=== PATIENT | male | born 1975 | race Caucasian/White ===

== ENCOUNTER 2024-12-16 13:58 | Emergency (ER) | payer BC ==
[2024-12-16] MEDS: LORazepam 2 MG/ML SDV IVPUSH ONE ×2 (14:35→15:26)
[2024-12-16] MEDS: Sodium Chloride 0.9% 1,000 ML IV SCH ×2 (14:37→15:49)
[2024-12-16] MEDS: Magnesium Sulfate 2 GM/50 mL 2 GM/50 ML BAG IV ONE (14:41)
[2024-12-16 14:53] LABS: BASOPHILS PERCENT AUTO 0.2 % (0.0-1.0); HEMATOCRIT 48.1 % (42.0-52.0); HEMOGLOBIN 16.8 gm/dl (14.0-18.0); IMMATURE GRAN ABSOLUTE AUTO 0.02 K/mm3 (0.00-0.05); IMMATURE GRAN PERCENT AUTO 0.4 % (0.0-0.4); LYMPHOCYTES ABSOLUTE AUTO 0.5 K/mm3 (1.0-4.8); LYMPHOCYTES PERCENT AUTO 9.4 % (24.0-44.0); MEAN CORPUSCULAR HEMOGLOBIN 32.4 pg (28.0-32.0); MEAN CORPUSCULAR HGB CONC 34.9 g/dl (32.0-36.0); MEAN CORPUSCULAR VOLUME 92.9 fl (83.0-99.0); MEAN PLATELET VOLUME 12.6 fl (9.4-12.4); MONOCYTES ABSOLUTE AUTO 0.8 K/mm3 (0.0-0.8); MONOCYTES PERCENT AUTO 15.9 % (0.0-8.0); NEUTROPHILS ABSOLUTE AUTO 3.6 K/mm3 (1.8-7.7); NEUTROPHILS PERCENT AUTO 74.1 % (41.0-71.0); PLATELET COUNT,PLT 62 K/mm3 (150-400); RED BLOOD CELL COUNT 5.18 M/mm3 (4.52-5.90); WHITE BLOOD CELL COUNT,WBC 4.91 K/mm3 (3.9-11.3)
[2024-12-16 15:17] LABS: A/G RATIO 0.8 (1-2); ALBUMIN 3.4 g/dl (3.4-5.0); BUN/CREATININE RATIO 7.3 (14-18); CALCIUM 8.9 mg/dL (8.5-10.1); EST CRCL DRUG DOSING (CG) 78.59 mL/min; MAGNESIUM 1.1 mg/dL (1.8-2.4)
[2024-12-16 15:19] LABS: PROTEIN TOTAL,TP 7.5 g/dl (6.4-8.2)
[2024-12-16 15:20] LABS: CREATININE 1.1 mg/dL (0.7-1.3)
[2024-12-16] MEDS: Metoprolol Tartrate 5 MG/5 ML SDV IVPUSH ONE (15:29)
[2024-12-16 15:30] LABS: SLIDE REVIEW ABNORMAL SMEAR
[2024-12-16] MEDS: Sodium Chloride 0.9% 10 ML Syringe FLUSH ONE (15:33)
[2024-12-16] MEDS: Iopamidol 755 Mg/ML 100 ML Bottle IVPUSH ONE (15:47)
[2024-12-16] MEDS: Sodium Chloride 0.9% 100 ML IV SCH (15:47)
[2024-12-16 17:04] LABS: BARBITURATE SCREEN,URINE NEGATIVE (CUTOFF=200); BENZODIAZEPINES SCREEN,URINE NEGATIVE (CUTOFF=150); BUPRENORPHINE SCREEN,URINE NEGATIVE (CUTOFF=10); METHADONE SCREEN, URINE NEGATIVE (CUT0FF=200); METHAMPHETAMINES SCREEN, URINE NEGATIVE (CUTOFF=500); OXYCODONE SCREEN,URINE NEGATIVE (CUT0FF=100); THC SCREEN,URINE 20 NG/ML NEGATIVE (CUTOFF=50)
[2024-12-16 17:29] LABS: AMPHETAMINES SCREEN, URINE NEGATIVE (CUTOFF=500)
== END 2024-12-16 18:40 | disposition home or self-care (01) ==
LOC: JD.ED 13:58
DX: R07.89 Other chest pain (principal); F10.939 Alcohol use, unspecified with withdrawal, unspecified; F41.9 Anxiety disorder, unspecified; E86.0 Dehydration; K76.0 Fatty (change of) liver, not elsewhere classified; R91.1 Solitary pulmonary nodule; Z79.899 Other long term (current) drug therapy; Y90.9 Presence of alcohol in blood, level not specified
CPT/HCPCS: 36415; 71045; 71275; 80053; 80306; 80307; 82550; 83690; 83735; 83880; 84484; 85025; 85379; 93005; 96361; 96365; 96375; 96376; 99285; J2060; J3475; J3490; J7030; Q9967; 93010; 99284

== ENCOUNTER 2024-12-30 17:20 | Inpatient (IN) | payer BC, OTHER ==
[2024-12-30 18:32] LABS: BASOPHILS ABSOLUTE AUTO 0.0 K/mm3 (0.0-0.2); BASOPHILS PERCENT AUTO 0.2 % (0.0-1.0); EOSINOPHILS ABSOLUTE AUTO 0.1 K/mm3 (0.0-0.4); EOSINOPHILS PERCENT AUTO 0.4 % (0.0-6.0); IMMATURE GRAN ABSOLUTE AUTO 0.21 K/mm3 (0.00-0.05); IMMATURE GRAN PERCENT AUTO 1.8 % (0.0-0.4); LYMPHOCYTES ABSOLUTE AUTO 0.3 K/mm3 (1.0-4.8); LYMPHOCYTES PERCENT AUTO 2.8 % (24.0-44.0); MEAN PLATELET VOLUME 10.6 fl (9.4-12.4); MONOCYTES ABSOLUTE AUTO 1.5 K/mm3 (0.0-0.8); MONOCYTES PERCENT AUTO 12.6 % (0.0-8.0); NEUTROPHILS ABSOLUTE AUTO 9.8 K/mm3 (1.8-7.7); NEUTROPHILS PERCENT AUTO 82.2 % (41.0-71.0); NRBC ABSOLUTE 0.00 (0.00-0.02); NRBC PERCENT 0.0 % (0.0-0.2); PLATELET COUNT,PLT 418 K/mm3 (150-400); RED BLOOD CELL COUNT 4.31 M/mm3 (4.52-5.90); WHITE BLOOD CELL COUNT,WBC 11.94 K/mm3 (3.9-11.3)
[2024-12-30 18:41] LABS: INR 1.41
[2024-12-30 19:03] LABS: CHLORIDE,CL 78 mEq/L (98-107); ESTIMATED GFR 92 mL/min (>60)
[2024-12-30 19:36] LABS: A/G RATIO 0.6 (1-2); BILIRUBIN TOTAL 35.4 mg/dL (0.2-1.0); BLOOD UREA NITROGEN,BUN 16 mg/dL (7-18); CARBON DIOXIDE,CO2 23 mEq/L (21-32); EST CRCL DRUG DOSING (CG) 86.45 mL/min
[2024-12-30 19:48] LABS: ETHANOL BLOOD MEDICAL 0.00 gm% (0.00)
[2024-12-30 19:51] LABS: CREATININE 1.0 mg/dL (0.7-1.3); GLUCOSE RANDOM 98 mg/dL (70-99); POTASSIUM,K 3.4 mEq/L (3.5-5.1)
[2024-12-30 19:52] LABS: ASPARTATE AMNIOTRANSFERASE,AST 153 U/L (15-37); CREATINE KINASE,CK 87 U/L (39-308); TROPONIN I HIGH SENSITIVITY 7 pg/mL (<=76)
[2024-12-30 19:53] LABS: ALANINE AMINOTRANSFERASE,ALT 101 U/L (16-63); BILIRUBIN DIRECT 28.70 mg/dl (0.0-0.2)
[2024-12-30 19:56] LABS: SODIUM,NA 112 mEq/L (136-145)
[2024-12-30 21:28] LABS: APPEARANCE,URINE SLT CLOUDY (Clear); GLUCOSE,URINE TRACE (Negative); OCCULT BLOOD,URINE TRACE-INTACT (Negative)
[2024-12-30 21:38] LABS: BUPRENORPHINE SCREEN,URINE NEGATIVE (CUTOFF=10); METHADONE SCREEN, URINE NEGATIVE (CUT0FF=200); METHAMPHETAMINES SCREEN, URINE NEGATIVE (CUTOFF=500); OXYCODONE SCREEN,URINE NEGATIVE (CUT0FF=100); THC SCREEN,URINE 20 NG/ML NEGATIVE (CUTOFF=50)
[2024-12-30 21:45] LABS: AMPHETAMINES SCREEN, URINE NEGATIVE (CUTOFF=500)
[2024-12-30 21:49] LABS: EPITHELIAL CELLS,URINE 0-5 /hpf (0-5)
[2024-12-31 00:32] LABS: BLOOD UREA NITROGEN,BUN 16.0 mg/dL (7-18); CARBON DIOXIDE,CO2 23.0 mEq/L (21-32); CHLORIDE,CL 83.0 mEq/L (98-107); EST CRCL DRUG DOSING (CG) 78.59 mL/min; ESTIMATED GFR 82.0 mL/min (>60)
[2024-12-31 00:45] LABS: POTASSIUM,K 3.3 mEq/L (3.5-5.1); SODIUM,NA 115.0 mEq/L (136-145)
[2024-12-31 00:46] LABS: CREATININE 1.1 mg/dL (0.7-1.3); GLUCOSE RANDOM 85.0 mg/dL (70-99)
[2024-12-31] MEDS: Potassium Chloride 20 MEQ Tab.ER PO ONE (08:21)
[2024-12-31 08:51] LABS: BASOPHILS ABSOLUTE AUTO 0.0 K/mm3 (0.0-0.2); BASOPHILS PERCENT AUTO 0.2 % (0.0-1.0); EOSINOPHILS ABSOLUTE AUTO 0.0 K/mm3 (0.0-0.4); EOSINOPHILS PERCENT AUTO 0.3 % (0.0-6.0); IMMATURE GRAN ABSOLUTE AUTO 0.19 K/mm3 (0.00-0.05); IMMATURE GRAN PERCENT AUTO 1.4 % (0.0-0.4); LYMPHOCYTES ABSOLUTE AUTO 0.3 K/mm3 (1.0-4.8); LYMPHOCYTES PERCENT AUTO 2.2 % (24.0-44.0); MEAN PLATELET VOLUME 10.3 fl (9.4-12.4); MONOCYTES ABSOLUTE AUTO 1.4 K/mm3 (0.0-0.8); MONOCYTES PERCENT AUTO 10.8 % (0.0-8.0); NEUTROPHILS ABSOLUTE AUTO 11.4 K/mm3 (1.8-7.7); NEUTROPHILS PERCENT AUTO 85.1 % (41.0-71.0); NRBC ABSOLUTE 0.00 (0.00-0.02); NRBC PERCENT 0.0 % (0.0-0.2); PLATELET COUNT,PLT 389 K/mm3 (150-400); RED BLOOD CELL COUNT 4.53 M/mm3 (4.52-5.90); WHITE BLOOD CELL COUNT,WBC 13.38 K/mm3 (3.9-11.3)
[2024-12-31 10:11] LABS: A/G RATIO 0.6 (1-2); BILIRUBIN TOTAL 36.9 mg/dL (0.2-1.0); BLOOD UREA NITROGEN,BUN 17 mg/dL (7-18); CARBON DIOXIDE,CO2 22 mEq/L (21-32); CHLORIDE,CL 81 mEq/L (98-107); EST CRCL DRUG DOSING (CG) 78.59 mL/min; ESTIMATED GFR 82 mL/min (>60)
[2024-12-31 10:15] LABS: SODIUM,NA 114 mEq/L (136-145)
[2024-12-31 10:16] LABS: ALANINE AMINOTRANSFERASE,ALT 103 U/L (16-63); ASPARTATE AMNIOTRANSFERASE,AST 152 U/L (15-37); CREATININE 1.1 mg/dL (0.7-1.3); GLUCOSE RANDOM 79 mg/dL (70-99); POTASSIUM,K 3.4 mEq/L (3.5-5.1)
[2024-12-31 13:33] LABS: A/G RATIO 0.6 (1-2); BILIRUBIN TOTAL 36.2 mg/dL (0.2-1.0); BLOOD UREA NITROGEN,BUN 17 mg/dL (7-18); CARBON DIOXIDE,CO2 22 mEq/L (21-32)
[2024-12-31 13:44] LABS: CHLORIDE,CL 81 mEq/L (98-107); EST CRCL DRUG DOSING (CG) 72.04 mL/min; ESTIMATED GFR 74 mL/min (>60)
[2024-12-31 13:50] LABS: GLUCOSE RANDOM 88 mg/dL (70-99); POTASSIUM,K 3.5 mEq/L (3.5-5.1); SODIUM,NA 114 mEq/L (136-145)
[2024-12-31 13:51] LABS: CREATININE 1.2 mg/dL (0.7-1.3)
[2024-12-31 13:52] LABS: ALANINE AMINOTRANSFERASE,ALT 103 U/L (16-63); ASPARTATE AMNIOTRANSFERASE,AST 150 U/L (15-37)
[2024-12-31 23:10] LABS: OSMOLALITY,URINE 491 mosm/kg (400-1100)
[2025-01-01 04:28] LABS: BASOPHILS ABSOLUTE AUTO 0.0 K/mm3 (0.0-0.2); BASOPHILS PERCENT AUTO 0.3 % (0.0-1.0); EOSINOPHILS ABSOLUTE AUTO 0.1 K/mm3 (0.0-0.4); EOSINOPHILS PERCENT AUTO 0.5 % (0.0-6.0); IMMATURE GRAN ABSOLUTE AUTO 0.14 K/mm3 (0.00-0.05); IMMATURE GRAN PERCENT AUTO 1.3 % (0.0-0.4); LYMPHOCYTES ABSOLUTE AUTO 0.2 K/mm3 (1.0-4.8); LYMPHOCYTES PERCENT AUTO 2.0 % (24.0-44.0); MEAN PLATELET VOLUME 9.9 fl (9.4-12.4); MONOCYTES ABSOLUTE AUTO 1.2 K/mm3 (0.0-0.8); MONOCYTES PERCENT AUTO 11.0 % (0.0-8.0); NEUTROPHILS ABSOLUTE AUTO 9.5 K/mm3 (1.8-7.7); NEUTROPHILS PERCENT AUTO 84.9 % (41.0-71.0); NRBC ABSOLUTE 0.00 (0.00-0.02); NRBC PERCENT 0.0 % (0.0-0.2); PLATELET COUNT,PLT 306 K/mm3 (150-400); WHITE BLOOD CELL COUNT,WBC 11.14 K/mm3 (3.9-11.3)
[2025-01-01 05:06] LABS: ALANINE AMINOTRANSFERASE,ALT 89.0 U/L (16-63); ASPARTATE AMNIOTRANSFERASE,AST 125.0 U/L (15-37); BILIRUBIN TOTAL 31.1 mg/dL (0.2-1.0); BLOOD UREA NITROGEN,BUN 20.0 mg/dL (7-18); CARBON DIOXIDE,CO2 21.0 mEq/L (21-32); CHLORIDE,CL 85.0 mEq/L (98-107); CREATININE 1.1 mg/dL (0.7-1.3); EST CRCL DRUG DOSING (CG) 78.59 mL/min; ESTIMATED GFR 82.0 mL/min (>60); GLUCOSE RANDOM 81.0 mg/dL (70-99); POTASSIUM,K 3.2 mEq/L (3.5-5.1)
[2025-01-01 05:09] LABS: RED BLOOD CELL COUNT 3.9 M/mm3 (4.52-5.90)
[2025-01-01 05:26] LABS: A/G RATIO 0.6 (1-2); PROTEIN TOTAL,TP 4.4 g/dl (6.4-8.2)
[2025-01-01 05:38] LABS: SODIUM,NA 116.0 mEq/L (136-145)
[2025-01-01] MEDS ORDERED: Acetaminophen/HYDROcodone 325-5 MG Tab PO PRN (09:18)
[2025-01-01] MEDS ORDERED: Ondansetron 4 MG/2 ML SDV IV PRN (09:18)
[2025-01-01] MEDS ORDERED: LORazepam 2 MG/ML SDV IVPUSH PRN ×2 (09:21→13:17)
[2025-01-01] MEDS: Potassium Chloride 20 MEQ Tab.ER PO ONE (09:28)
[2025-01-01] MEDS: Cyanocobalamin (Vitamin B12) 1,000 MCG Tab PO SCH (09:56)
[2025-01-01] MEDS: Furosemide 40 MG/4 ML VIAL IVPUSH ONE (09:56)
[2025-01-01 12:46] LABS: BLOOD UREA NITROGEN,BUN 21.0 mg/dL (7-18); CARBON DIOXIDE,CO2 22.0 mEq/L (21-32); CHLORIDE,CL 84.0 mEq/L (98-107); EST CRCL DRUG DOSING (CG) 66.5 mL/min; ESTIMATED GFR 67.0 mL/min (>60)
[2025-01-01 12:48] LABS: CREATININE 1.3 mg/dL (0.7-1.3); GLUCOSE RANDOM 90.0 mg/dL (70-99); POTASSIUM,K 3.8 mEq/L (3.5-5.1); SODIUM,NA 115.0 mEq/L (136-145); TSH 1.087 uIU/mL (0.358-3.74)
[2025-01-01 12:49] LABS: PHOSPHORUS 2.8 mg/dL (2.6-4.7)
[2025-01-01] MEDS: Potassium Phosphates 30 MMOLE in Sodium Chloride 0.9% 500 ML IV SCH (13:29)
[2025-01-01] MEDS: prednisoLONE Soln 15 MG/5 ML UD Cup PO SCH (14:09)
[2025-01-01 15:39] LABS: BLOOD UREA NITROGEN,BUN 22.0 mg/dL (7-18); CARBON DIOXIDE,CO2 20.0 mEq/L (21-32); CHLORIDE,CL 86.0 mEq/L (98-107); EST CRCL DRUG DOSING (CG) 66.5 mL/min; ESTIMATED GFR 67.0 mL/min (>60)
[2025-01-01 15:48] LABS: SODIUM,NA 117.0 mEq/L (136-145)
[2025-01-01 15:49] LABS: CREATININE 1.3 mg/dL (0.7-1.3); GLUCOSE RANDOM 95.0 mg/dL (70-99); POTASSIUM,K 3.5 mEq/L (3.5-5.1)
[2025-01-01 19:00] LABS: BLOOD UREA NITROGEN,BUN 21.0 mg/dL (7-18); CARBON DIOXIDE,CO2 18.0 mEq/L (21-32); CHLORIDE,CL 85.0 mEq/L (98-107); CREATININE 1.4 mg/dL (0.7-1.3); EST CRCL DRUG DOSING (CG) 61.75 mL/min; ESTIMATED GFR 62.0 mL/min (>60); GLUCOSE RANDOM 110.0 mg/dL (70-99); POTASSIUM,K 4.2 mEq/L (3.5-5.1)
[2025-01-01 19:08] LABS: SODIUM,NA 116.0 mEq/L (136-145)
[2025-01-01] MEDS ORDERED: Sennosides/Docusate Sodium 50-8.6 MG Tab PO PRN (21:00)
[2025-01-01 21:12] LABS: BLOOD UREA NITROGEN,BUN 22.0 mg/dL (7-18); CARBON DIOXIDE,CO2 21.0 mEq/L (21-32); CHLORIDE,CL 87.0 mEq/L (98-107); CREATININE 1.5 mg/dL (0.7-1.3); EST CRCL DRUG DOSING (CG) 57.63 mL/min; ESTIMATED GFR 57.0 mL/min (>60); GLUCOSE RANDOM 111.0 mg/dL (70-99); POTASSIUM,K 4.4 mEq/L (3.5-5.1)
[2025-01-01 21:35] LABS: SODIUM,NA 118.0 mEq/L (136-145)
[2025-01-02 00:31] LABS: BLOOD UREA NITROGEN,BUN 22.0 mg/dL (7-18); CARBON DIOXIDE,CO2 21.0 mEq/L (21-32); CHLORIDE,CL 86.0 mEq/L (98-107); EST CRCL DRUG DOSING (CG) 57.63 mL/min; ESTIMATED GFR 57.0 mL/min (>60)
[2025-01-02 00:46] LABS: GLUCOSE RANDOM 116.0 mg/dL (70-99); POTASSIUM,K 3.8 mEq/L (3.5-5.1); SODIUM,NA 117.0 mEq/L (136-145)
[2025-01-02 00:47] LABS: CREATININE 1.5 mg/dL (0.7-1.3)
[2025-01-02 03:02] LABS: BASOPHILS ABSOLUTE AUTO 0.0 K/mm3 (0.0-0.2); BASOPHILS PERCENT AUTO 0.1 % (0.0-1.0); EOSINOPHILS ABSOLUTE AUTO 0.0 K/mm3 (0.0-0.4); EOSINOPHILS PERCENT AUTO 0.1 % (0.0-6.0); IMMATURE GRAN ABSOLUTE AUTO 0.18 K/mm3 (0.00-0.05); IMMATURE GRAN PERCENT AUTO 1.5 % (0.0-0.4); LYMPHOCYTES ABSOLUTE AUTO 0.1 K/mm3 (1.0-4.8); LYMPHOCYTES PERCENT AUTO 1.2 % (24.0-44.0); MEAN PLATELET VOLUME 9.9 fl (9.4-12.4); MONOCYTES ABSOLUTE AUTO 0.9 K/mm3 (0.0-0.8); MONOCYTES PERCENT AUTO 7.4 % (0.0-8.0); NEUTROPHILS ABSOLUTE AUTO 10.7 K/mm3 (1.8-7.7); NEUTROPHILS PERCENT AUTO 89.7 % (41.0-71.0); NRBC ABSOLUTE 0.00 (0.00-0.02); NRBC PERCENT 0.0 % (0.0-0.2); PLATELET COUNT,PLT 330 K/mm3 (150-400); WHITE BLOOD CELL COUNT,WBC 11.93 K/mm3 (3.9-11.3)
[2025-01-02 03:19] LABS: INR 1.65
[2025-01-02 04:01] LABS: A/G RATIO 0.6 (1-2); BILIRUBIN TOTAL 33.7 mg/dL (0.2-1.0); BLOOD UREA NITROGEN,BUN 22.0 mg/dL (7-18); CARBON DIOXIDE,CO2 20.0 mEq/L (21-32); CHLORIDE,CL 87.0 mEq/L (98-107); EST CRCL DRUG DOSING (CG) 61.75 mL/min; ESTIMATED GFR 62.0 mL/min (>60)
[2025-01-02 04:06] LABS: RED BLOOD CELL COUNT 3.80 M/mm3 (4.52-5.90)
[2025-01-02 04:15] LABS: SODIUM,NA 118.0 mEq/L (136-145); VITAMIN D,25-HYDROXY 37.0 ng/ml (30.0-100.0)
[2025-01-02 04:16] LABS: POTASSIUM,K 3.7 mEq/L (3.5-5.1)
[2025-01-02 04:17] LABS: CREATININE 1.4 mg/dL (0.7-1.3); GLUCOSE RANDOM 112.0 mg/dL (70-99); PROTEIN TOTAL,TP 4.6 g/dl (6.4-8.2)
[2025-01-02 04:18] LABS: PHOSPHORUS 4.2 mg/dL (2.6-4.7)
[2025-01-02 04:20] LABS: ALANINE AMINOTRANSFERASE,ALT 93.0 U/L (16-63); ASPARTATE AMNIOTRANSFERASE,AST 124.0 U/L (15-37)
[2025-01-02 04:28] LABS: FOLIC ACID 4.8 ng/mL (8.6-58.9)
[2025-01-02 08:02] LABS: BLOOD UREA NITROGEN,BUN 23.0 mg/dL (7-18); CARBON DIOXIDE,CO2 19.0 mEq/L (21-32); CHLORIDE,CL 86.0 mEq/L (98-107); EST CRCL DRUG DOSING (CG) 57.63 mL/min; ESTIMATED GFR 57.0 mL/min (>60)
[2025-01-02 08:14] LABS: SODIUM,NA 118.0 mEq/L (136-145)
[2025-01-02 08:15] LABS: CREATININE 1.5 mg/dL (0.7-1.3); GLUCOSE RANDOM 100.0 mg/dL (70-99); POTASSIUM,K 3.6 mEq/L (3.5-5.1)
[2025-01-02 09:46] LABS: HIV 1,2 COMBO AG/AB CIA W/RFLX Negative (Negative)
[2025-01-02 10:30] LABS: BLOOD UREA NITROGEN,BUN 22.0 mg/dL (7-18); CARBON DIOXIDE,CO2 23.0 mEq/L (21-32); CHLORIDE,CL 88.0 mEq/L (98-107); EST CRCL DRUG DOSING (CG) 50.85 mL/min; ESTIMATED GFR 49.0 mL/min (>60); SODIUM,NA 119.0 mEq/L (136-145)
[2025-01-02 10:33] LABS: CREATININE 1.7 mg/dL (0.7-1.3); GLUCOSE RANDOM 100.0 mg/dL (70-99); POTASSIUM,K 3.6 mEq/L (3.5-5.1)
[2025-01-02] MEDS: Potassium Chloride 20 MEQ Tab.ER PO ONE (13:54)
[2025-01-02 14:46] LABS: HAV AB IGM Negative (Negative); HBC IGM Negative (Negative); HEP B SURG AG Negative (Negative); HEP C AB BY CIA Negative (Negative); HEP C AB BY CIA INDEX 0.04 IV
[2025-01-02 14:46] LABS: BLOOD UREA NITROGEN,BUN 24.0 mg/dL (7-18); CARBON DIOXIDE,CO2 22.0 mEq/L (21-32); CHLORIDE,CL 88.0 mEq/L (98-107); EST CRCL DRUG DOSING (CG) 54.03 mL/min; ESTIMATED GFR 52.0 mL/min (>60); SODIUM,NA 119.0 mEq/L (136-145)
[2025-01-02 14:48] LABS: CREATININE 1.6 mg/dL (0.7-1.3); GLUCOSE RANDOM 126.0 mg/dL (70-99); POTASSIUM,K 4.5 mEq/L (3.5-5.1)
[2025-01-02 18:25] LABS: BLOOD UREA NITROGEN,BUN 23.0 mg/dL (7-18); CARBON DIOXIDE,CO2 21.0 mEq/L (21-32); CHLORIDE,CL 88.0 mEq/L (98-107); EST CRCL DRUG DOSING (CG) 57.63 mL/min; ESTIMATED GFR 57.0 mL/min (>60); SODIUM,NA 119.0 mEq/L (136-145)
[2025-01-02 18:27] LABS: CREATININE 1.5 mg/dL (0.7-1.3); GLUCOSE RANDOM 121.0 mg/dL (70-99); POTASSIUM,K 4.0 mEq/L (3.5-5.1)
[2025-01-02 22:17] LABS: BLOOD UREA NITROGEN,BUN 23.0 mg/dL (7-18); CARBON DIOXIDE,CO2 19.0 mEq/L (21-32); CHLORIDE,CL 91.0 mEq/L (98-107); EST CRCL DRUG DOSING (CG) 61.75 mL/min; ESTIMATED GFR 62.0 mL/min (>60); SODIUM,NA 120.0 mEq/L (136-145)
[2025-01-02 22:19] LABS: POTASSIUM,K 3.8 mEq/L (3.5-5.1)
[2025-01-02 22:20] LABS: CREATININE 1.4 mg/dL (0.7-1.3); GLUCOSE RANDOM 123.0 mg/dL (70-99)
[2025-01-03 02:21] LABS: BLOOD UREA NITROGEN,BUN 23.0 mg/dL (7-18); CARBON DIOXIDE,CO2 20.0 mEq/L (21-32); CHLORIDE,CL 92.0 mEq/L (98-107); EST CRCL DRUG DOSING (CG) 61.75 mL/min; ESTIMATED GFR 62.0 mL/min (>60); SODIUM,NA 122.0 mEq/L (136-145)
[2025-01-03 02:25] LABS: CREATININE 1.4 mg/dL (0.7-1.3); GLUCOSE RANDOM 100.0 mg/dL (70-99); POTASSIUM,K 3.9 mEq/L (3.5-5.1)
[2025-01-03 06:53] LABS: A/G RATIO 0.6 (1-2); ASPARTATE AMNIOTRANSFERASE,AST 112.0 U/L (15-37); BILIRUBIN TOTAL 34.7 mg/dL (0.2-1.0); BLOOD UREA NITROGEN,BUN 24.0 mg/dL (7-18); CARBON DIOXIDE,CO2 18.0 mEq/L (21-32); CHLORIDE,CL 94.0 mEq/L (98-107); EST CRCL DRUG DOSING (CG) 61.75 mL/min; ESTIMATED GFR 62.0 mL/min (>60); SODIUM,NA 123.0 mEq/L (136-145)
[2025-01-03 06:58] LABS: ALANINE AMINOTRANSFERASE,ALT 99.0 U/L (16-63); GLUCOSE RANDOM 91.0 mg/dL (70-99); PROTEIN TOTAL,TP 4.6 g/dl (6.4-8.2)
[2025-01-03 06:59] LABS: CREATININE 1.4 mg/dL (0.7-1.3); POTASSIUM,K 3.6 mEq/L (3.5-5.1)
[2025-01-03] MEDS: Potassium Chloride 20 MEQ Tab.ER PO ONE (10:15)
[2025-01-03 12:56] LABS: BLOOD UREA NITROGEN,BUN 23.0 mg/dL (7-18); CARBON DIOXIDE,CO2 19.0 mEq/L (21-32); CHLORIDE,CL 94.0 mEq/L (98-107); EST CRCL DRUG DOSING (CG) 57.63 mL/min; ESTIMATED GFR 57.0 mL/min (>60); SODIUM,NA 123.0 mEq/L (136-145)
[2025-01-03 13:23] LABS: POTASSIUM,K 4.0 mEq/L (3.5-5.1)
[2025-01-03 13:24] LABS: CREATININE 1.5 mg/dL (0.7-1.3); GLUCOSE RANDOM 97.0 mg/dL (70-99)
[2025-01-03 18:26] LABS: BLOOD UREA NITROGEN,BUN 24.0 mg/dL (7-18); CARBON DIOXIDE,CO2 20.0 mEq/L (21-32); CHLORIDE,CL 94.0 mEq/L (98-107); EST CRCL DRUG DOSING (CG) 54.03 mL/min; ESTIMATED GFR 52.0 mL/min (>60); SODIUM,NA 124.0 mEq/L (136-145)
[2025-01-03 18:36] LABS: CREATININE 1.6 mg/dL (0.7-1.3); GLUCOSE RANDOM 110.0 mg/dL (70-99); POTASSIUM,K 4.2 mEq/L (3.5-5.1)
[2025-01-04 00:29] LABS: BLOOD UREA NITROGEN,BUN 24.0 mg/dL (7-18); CARBON DIOXIDE,CO2 18.0 mEq/L (21-32); CHLORIDE,CL 96.0 mEq/L (98-107); EST CRCL DRUG DOSING (CG) 57.63 mL/min; ESTIMATED GFR 57.0 mL/min (>60); SODIUM,NA 125.0 mEq/L (136-145)
[2025-01-04 00:38] LABS: CREATININE 1.5 mg/dL (0.7-1.3); GLUCOSE RANDOM 95.0 mg/dL (70-99); POTASSIUM,K 4.1 mEq/L (3.5-5.1)
[2025-01-04 07:09] LABS: A/G RATIO 0.5 (1-2); BILIRUBIN TOTAL 31.5 mg/dL (0.2-1.0); BLOOD UREA NITROGEN,BUN 25.0 mg/dL (7-18); CARBON DIOXIDE,CO2 20.0 mEq/L (21-32); CHLORIDE,CL 97.0 mEq/L (98-107); EST CRCL DRUG DOSING (CG) 54.03 mL/min; ESTIMATED GFR 52.0 mL/min (>60); SODIUM,NA 126.0 mEq/L (136-145)
[2025-01-04 07:24] LABS: ASPARTATE AMNIOTRANSFERASE,AST 113.0 U/L (15-37); CREATININE 1.6 mg/dL (0.7-1.3); GLUCOSE RANDOM 88.0 mg/dL (70-99); POTASSIUM,K 3.8 mEq/L (3.5-5.1)
[2025-01-04 07:25] LABS: ALANINE AMINOTRANSFERASE,ALT 106.0 U/L (16-63); PROTEIN TOTAL,TP 4.3 g/dl (6.4-8.2)
[2025-01-04 12:40] LABS: BLOOD UREA NITROGEN,BUN 25.0 mg/dL (7-18); CARBON DIOXIDE,CO2 23.0 mEq/L (21-32); CHLORIDE,CL 95.0 mEq/L (98-107); EST CRCL DRUG DOSING (CG) 50.85 mL/min; ESTIMATED GFR 49.0 mL/min (>60); SODIUM,NA 125.0 mEq/L (136-145)
[2025-01-04 12:42] LABS: CREATININE 1.7 mg/dL (0.7-1.3); GLUCOSE RANDOM 97.0 mg/dL (70-99); POTASSIUM,K 3.7 mEq/L (3.5-5.1)
[2025-01-04] MEDS: Furosemide 40 MG/4 ML VIAL IVPUSH ONE (17:13)
[2025-01-04 18:40] LABS: BLOOD UREA NITROGEN,BUN 27.0 mg/dL (7-18); CARBON DIOXIDE,CO2 17.0 mEq/L (21-32); CHLORIDE,CL 97.0 mEq/L (98-107); EST CRCL DRUG DOSING (CG) 50.85 mL/min; ESTIMATED GFR 49.0 mL/min (>60); SODIUM,NA 126.0 mEq/L (136-145)
[2025-01-04 18:56] LABS: GLUCOSE RANDOM 161.0 mg/dL (70-99); POTASSIUM,K 4.0 mEq/L (3.5-5.1)
[2025-01-04 18:57] LABS: CREATININE 1.7 mg/dL (0.7-1.3)
[2025-01-05 00:27] LABS: BLOOD UREA NITROGEN,BUN 26.0 mg/dL (7-18); CARBON DIOXIDE,CO2 17.0 mEq/L (21-32); CHLORIDE,CL 98.0 mEq/L (98-107); EST CRCL DRUG DOSING (CG) 50.85 mL/min; ESTIMATED GFR 49.0 mL/min (>60); SODIUM,NA 127.0 mEq/L (136-145)
[2025-01-05 00:35] LABS: CREATININE 1.7 mg/dL (0.7-1.3); GLUCOSE RANDOM 114.0 mg/dL (70-99); POTASSIUM,K 3.9 mEq/L (3.5-5.1)
[2025-01-05 07:43] LABS: A/G RATIO 0.6 (1-2); BILIRUBIN TOTAL 33.8 mg/dL (0.2-1.0); BLOOD UREA NITROGEN,BUN 29.0 mg/dL (7-18); CARBON DIOXIDE,CO2 18.0 mEq/L (21-32); CHLORIDE,CL 99.0 mEq/L (98-107); EST CRCL DRUG DOSING (CG) 50.85 mL/min; ESTIMATED GFR 49.0 mL/min (>60); SODIUM,NA 131.0 mEq/L (136-145)
[2025-01-05 07:45] LABS: GLUCOSE RANDOM 90.0 mg/dL (70-99); POTASSIUM,K 3.7 mEq/L (3.5-5.1); PROTEIN TOTAL,TP 4.6 g/dl (6.4-8.2)
[2025-01-05 07:46] LABS: ALANINE AMINOTRANSFERASE,ALT 120.0 U/L (16-63); ASPARTATE AMNIOTRANSFERASE,AST 114.0 U/L (15-37); CREATININE 1.7 mg/dL (0.7-1.3)
[2025-01-06 04:34] LABS: MEAN PLATELET VOLUME 9.8 fl (9.4-12.4); NRBC ABSOLUTE 0.00 (0.00-0.02); NRBC PERCENT 0.0 % (0.0-0.2); PLATELET COUNT,PLT 252 K/mm3 (150-400); RED BLOOD CELL COUNT 3.82 M/mm3 (4.52-5.90); WHITE BLOOD CELL COUNT,WBC 13.78 K/mm3 (3.9-11.3)
[2025-01-06 04:51] LABS: INR 1.46
[2025-01-06 05:32] LABS: A/G RATIO 0.9 (1-2); BILIRUBIN TOTAL 37.3 mg/dL (0.2-1.0); BLOOD UREA NITROGEN,BUN 28 mg/dL (7-18); CARBON DIOXIDE,CO2 22 mEq/L (21-32); CHLORIDE,CL 97 mEq/L (98-107); EST CRCL DRUG DOSING (CG) 48.03 mL/min; ESTIMATED GFR 46 mL/min (>60); SODIUM,NA 130 mEq/L (136-145)
[2025-01-06 05:35] LABS: GLUCOSE RANDOM 95 mg/dL (70-99); POTASSIUM,K 3.8 mEq/L (3.5-5.1)
[2025-01-06 05:36] LABS: ALANINE AMINOTRANSFERASE,ALT 126 U/L (16-63); ASPARTATE AMNIOTRANSFERASE,AST 110 U/L (15-37); CREATININE 1.8 mg/dL (0.7-1.3)
== END 2025-01-06 14:35 | disposition home or self-care (01) | DRG 641 ==
LOC: JD.ED 17:20 → JD.ICU 12-31 06:25
PROVIDERS: ADMIT Family Medicine; ATTEND Internal Medicine
DX: E87.1 Hypo-osmolality and hyponatremia (principal); N17.9 Acute kidney failure, unspecified; F10.930 Alcohol use, unspecified with withdrawal, uncomplicated; E80.6 Other disorders of bilirubin metabolism; K70.10 Alcoholic hepatitis without ascites; I10 Essential (primary) hypertension; K21.9 Gastro-esophageal reflux disease without esophagitis; E87.6 Hypokalemia; K76.0 Fatty (change of) liver, not elsewhere classified; M10.9 Gout, unspecified; R94.31 Abnormal electrocardiogram [ECG] [EKG]; E53.8 Deficiency of other specified B group vitamins; R74.01 Elevation of levels of liver transaminase levels; Z87.81 Personal history of (healed) traumatic fracture; Z79.899 Other long term (current) drug therapy; Z90.89 Acquired absence of other organs
CPT/HCPCS: 36415; 70450; 70450-26; 76705; 76705-26; 80048; 80053; 80074; 80143; 80179; 80306; 80307; 81001; 82140; 82248; 82306; 82550; 82607; 82746; 83690; 83735; 83880; 83930; 83935; 84100; 84295; 84300; 84425; 84443; 84484; 85025; 85027; 85610; 86850; 86900; 86901; 87389; 93005; 93010; 96360; 96361; 99285; 99285-25; A9270-GY; J1650; J1938; J2597; J3490; J7030; J7040; J7070; J7131; P9047

== ENCOUNTER 2025-01-26 18:16 | Inpatient (IN) | payer OTHER ==
[2025-01-26] MEDS ORDERED: Sodium Chloride 0.9% 10 ML Syringe FLUSH PRN (19:04)
[2025-01-26 19:15] LABS: BASOPHILS ABSOLUTE AUTO 0.1 K/mm3 (0.0-0.2); BASOPHILS PERCENT AUTO 0.4 % (0.0-1.0); EOSINOPHILS ABSOLUTE AUTO 0.4 K/mm3 (0.0-0.4); EOSINOPHILS PERCENT AUTO 1.9 % (0.0-6.0); IMMATURE GRAN ABSOLUTE AUTO 0.31 K/mm3 (0.00-0.05); IMMATURE GRAN PERCENT AUTO 1.6 % (0.0-0.4); LYMPHOCYTES ABSOLUTE AUTO 0.5 K/mm3 (1.0-4.8); LYMPHOCYTES PERCENT AUTO 2.7 % (24.0-44.0); MEAN PLATELET VOLUME 9.9 fl (9.4-12.4); MONOCYTES ABSOLUTE AUTO 1.5 K/mm3 (0.0-0.8); MONOCYTES PERCENT AUTO 7.6 % (0.0-8.0); NEUTROPHILS ABSOLUTE AUTO 16.4 K/mm3 (1.8-7.7); NEUTROPHILS PERCENT AUTO 85.8 % (41.0-71.0); NRBC ABSOLUTE 0.00 (0.00-0.02); NRBC PERCENT 0.0 % (0.0-0.2); PLATELET COUNT,PLT 316 K/mm3 (150-400); RED BLOOD CELL COUNT 3.13 M/mm3 (4.52-5.90); WHITE BLOOD CELL COUNT,WBC 19.11 K/mm3 (3.9-11.3)
[2025-01-26 19:37] LABS: A/G RATIO 0.6 (1-2); BILIRUBIN TOTAL 19.8 mg/dL (0.2-1.0); BLOOD UREA NITROGEN,BUN 57.0 mg/dL (7-18); CARBON DIOXIDE,CO2 21.0 mEq/L (21-32); CHLORIDE,CL 96.0 mEq/L (98-107); EST CRCL DRUG DOSING (CG) 25.43 mL/min; ESTIMATED GFR 21.0 mL/min (>60); SODIUM,NA 132.0 mEq/L (136-145)
[2025-01-26 19:41] LABS: POTASSIUM,K 3.1 mEq/L (3.5-5.1)
[2025-01-26 19:44] LABS: GLUCOSE RANDOM 112.0 mg/dL (70-99); PROTEIN TOTAL,TP 5.1 g/dl (6.4-8.2)
[2025-01-26] MEDS: Potassium Chloride 20 MEQ Tab.ER PO ONE (19:44)
[2025-01-26] MEDS: NS with KCl 40mEq 1,000 ML IV SCH (19:44)
[2025-01-26 19:45] LABS: ALANINE AMINOTRANSFERASE,ALT 127.0 U/L (16-63); ASPARTATE AMNIOTRANSFERASE,AST 121.0 U/L (15-37); CREATININE 3.4 mg/dL (0.7-1.3); INR 1.47
[2025-01-26] MEDS: Octreotide 100 MCG/ML SDV IV SCH (21:41)
[2025-01-26] MEDS: Albumin 25% 12.5 GM/50 ML BAG IV SCH (21:41)
[2025-01-26 22:13] LABS: APPEARANCE,URINE CLEAR (Clear); GLUCOSE,URINE TRACE (Negative); OCCULT BLOOD,URINE NEGATIVE (Negative)
[2025-01-26 22:27] LABS: SQUAMOUS EPITHELIAL CELLS,UR 0-5 /hpf (0-5)
[2025-01-27 04:32] LABS: BASOPHILS ABSOLUTE AUTO 0.1 K/mm3 (0.0-0.2); BASOPHILS PERCENT AUTO 0.5 % (0.0-1.0); EOSINOPHILS ABSOLUTE AUTO 0.2 K/mm3 (0.0-0.4); EOSINOPHILS PERCENT AUTO 2.1 % (0.0-6.0); IMMATURE GRAN ABSOLUTE AUTO 0.14 K/mm3 (0.00-0.05); IMMATURE GRAN PERCENT AUTO 1.2 % (0.0-0.4); LYMPHOCYTES ABSOLUTE AUTO 0.6 K/mm3 (1.0-4.8); LYMPHOCYTES PERCENT AUTO 5.1 % (24.0-44.0); MEAN PLATELET VOLUME 9.9 fl (9.4-12.4); MONOCYTES ABSOLUTE AUTO 0.9 K/mm3 (0.0-0.8); MONOCYTES PERCENT AUTO 8.0 % (0.0-8.0); NEUTROPHILS ABSOLUTE AUTO 9.4 K/mm3 (1.8-7.7); NEUTROPHILS PERCENT AUTO 83.1 % (41.0-71.0); NRBC ABSOLUTE 0.00 (0.00-0.02); NRBC PERCENT 0.0 % (0.0-0.2); PLATELET COUNT,PLT 212 K/mm3 (150-400); RED BLOOD CELL COUNT 2.30 M/mm3 (4.52-5.90); WHITE BLOOD CELL COUNT,WBC 11.27 K/mm3 (3.9-11.3)
[2025-01-27 05:08] LABS: A/G RATIO 1.1 (1-2); ALANINE AMINOTRANSFERASE,ALT 87.0 U/L (16-63); ASPARTATE AMNIOTRANSFERASE,AST 89.0 U/L (15-37); BILIRUBIN TOTAL 16.1 mg/dL (0.2-1.0); BLOOD UREA NITROGEN,BUN 54.0 mg/dL (7-18); CARBON DIOXIDE,CO2 20.0 mEq/L (21-32); CHLORIDE,CL 101.0 mEq/L (98-107); EST CRCL DRUG DOSING (CG) 27.02 mL/min; ESTIMATED GFR 23.0 mL/min (>60); PHOSPHORUS 3.6 mg/dL (2.6-4.7); SODIUM,NA 134.0 mEq/L (136-145)
[2025-01-27 05:09] LABS: POTASSIUM,K 3.6 mEq/L (3.5-5.1)
[2025-01-27 05:10] LABS: CREATININE 3.2 mg/dL (0.7-1.3); GLUCOSE RANDOM 99.0 mg/dL (70-99); PROTEIN TOTAL,TP 4.7 g/dl (6.4-8.2)
[2025-01-27 14:19] LABS: BLOOD UREA NITROGEN,BUN 47.0 mg/dL (7-18); CARBON DIOXIDE,CO2 20.0 mEq/L (21-32); CHLORIDE,CL 102.0 mEq/L (98-107); EST CRCL DRUG DOSING (CG) 27.89 mL/min; ESTIMATED GFR 24.0 mL/min (>60); SODIUM,NA 134.0 mEq/L (136-145)
[2025-01-27 14:20] LABS: POTASSIUM,K 3.6 mEq/L (3.5-5.1)
[2025-01-27 14:21] LABS: CREATININE 3.1 mg/dL (0.7-1.3); GLUCOSE RANDOM 128.0 mg/dL (70-99)
[2025-01-27] MEDS: Cholestyramine/Sucrose Powder 4 GM Packet PO SCH (18:13)
[2025-01-27] MEDS: Albumin 25% 12.5 GM/50 ML BAG IV SCH (21:00)
[2025-01-28 04:05] LABS: BASOPHILS ABSOLUTE AUTO 0.1 K/mm3 (0.0-0.2); BASOPHILS PERCENT AUTO 0.4 % (0.0-1.0); EOSINOPHILS ABSOLUTE AUTO 0.4 K/mm3 (0.0-0.4); EOSINOPHILS PERCENT AUTO 3.1 % (0.0-6.0); IMMATURE GRAN ABSOLUTE AUTO 0.12 K/mm3 (0.00-0.05); IMMATURE GRAN PERCENT AUTO 1.0 % (0.0-0.4); LYMPHOCYTES ABSOLUTE AUTO 0.5 K/mm3 (1.0-4.8); LYMPHOCYTES PERCENT AUTO 4.6 % (24.0-44.0); MEAN PLATELET VOLUME 9.3 fl (9.4-12.4); MONOCYTES ABSOLUTE AUTO 0.9 K/mm3 (0.0-0.8); MONOCYTES PERCENT AUTO 8.0 % (0.0-8.0); NEUTROPHILS ABSOLUTE AUTO 9.5 K/mm3 (1.8-7.7); NEUTROPHILS PERCENT AUTO 82.9 % (41.0-71.0); NRBC ABSOLUTE 0.00 (0.00-0.02); NRBC PERCENT 0.0 % (0.0-0.2); PLATELET COUNT,PLT 182 K/mm3 (150-400); RED BLOOD CELL COUNT 2.17 M/mm3 (4.52-5.90); WHITE BLOOD CELL COUNT,WBC 11.48 K/mm3 (3.9-11.3)
[2025-01-28 04:57] LABS: A/G RATIO 1.6 (1-2); BILIRUBIN TOTAL 15.3 mg/dL (0.2-1.0); BLOOD UREA NITROGEN,BUN 41.0 mg/dL (7-18); CARBON DIOXIDE,CO2 21.0 mEq/L (21-32); CHLORIDE,CL 102.0 mEq/L (98-107); EST CRCL DRUG DOSING (CG) 30.88 mL/min; ESTIMATED GFR 27.0 mL/min (>60); IRON,FE 28.0 ug/dL (65-175); PERCENT FE SATURATION 47.0 % (20-55); SODIUM,NA 135.0 mEq/L (136-145)
[2025-01-28 05:18] LABS: GLUCOSE RANDOM 110.0 mg/dL (70-99); POTASSIUM,K 3.2 mEq/L (3.5-5.1)
[2025-01-28 05:19] LABS: ALANINE AMINOTRANSFERASE,ALT 75.0 U/L (16-63); ASPARTATE AMNIOTRANSFERASE,AST 79.0 U/L (15-37); CREATININE 2.8 mg/dL (0.7-1.3); PROTEIN TOTAL,TP 5.0 g/dl (6.4-8.2)
[2025-01-28 07:31] LABS: PHOSPHORUS 2.9 mg/dL (2.6-4.7)
[2025-01-28] MEDS: Potassium Chloride 20 MEQ Tab.ER PO ONE (08:56)
[2025-01-28 13:46] LABS: BLOOD UREA NITROGEN,BUN 40.0 mg/dL (7-18); CARBON DIOXIDE,CO2 21.0 mEq/L (21-32); CHLORIDE,CL 103.0 mEq/L (98-107); EST CRCL DRUG DOSING (CG) 33.25 mL/min; ESTIMATED GFR 29.0 mL/min (>60); SODIUM,NA 136.0 mEq/L (136-145)
[2025-01-28 13:52] LABS: INR 1.62
[2025-01-28 14:06] LABS: CREATININE 2.6 mg/dL (0.7-1.3); GLUCOSE RANDOM 117.0 mg/dL (70-99); POTASSIUM,K 3.8 mEq/L (3.5-5.1)
[2025-01-28] MEDS: Albumin 25% 12.5 GM/50 ML BAG IV SCH (21:33)
[2025-01-29 04:07] LABS: BASOPHILS ABSOLUTE AUTO 0.1 K/mm3 (0.0-0.2); BASOPHILS PERCENT AUTO 0.4 % (0.0-1.0); EOSINOPHILS ABSOLUTE AUTO 0.4 K/mm3 (0.0-0.4); EOSINOPHILS PERCENT AUTO 3.1 % (0.0-6.0); IMMATURE GRAN ABSOLUTE AUTO 0.13 K/mm3 (0.00-0.05); IMMATURE GRAN PERCENT AUTO 1.1 % (0.0-0.4); LYMPHOCYTES ABSOLUTE AUTO 0.5 K/mm3 (1.0-4.8); LYMPHOCYTES PERCENT AUTO 4.4 % (24.0-44.0); MEAN PLATELET VOLUME 9.5 fl (9.4-12.4); MONOCYTES ABSOLUTE AUTO 1.0 K/mm3 (0.0-0.8); MONOCYTES PERCENT AUTO 8.4 % (0.0-8.0); NEUTROPHILS ABSOLUTE AUTO 9.7 K/mm3 (1.8-7.7); NEUTROPHILS PERCENT AUTO 82.6 % (41.0-71.0); NRBC ABSOLUTE 0.00 (0.00-0.02); NRBC PERCENT 0.0 % (0.0-0.2); PLATELET COUNT,PLT 172 K/mm3 (150-400); RED BLOOD CELL COUNT 2.33 M/mm3 (4.52-5.90); WHITE BLOOD CELL COUNT,WBC 11.71 K/mm3 (3.9-11.3)
[2025-01-29 04:26] LABS: A/G RATIO 1.4 (1-2); BILIRUBIN TOTAL 13.7 mg/dL (0.2-1.0); BLOOD UREA NITROGEN,BUN 32.0 mg/dL (7-18); CARBON DIOXIDE,CO2 22.0 mEq/L (21-32); CHLORIDE,CL 105.0 mEq/L (98-107); EST CRCL DRUG DOSING (CG) 34.58 mL/min; ESTIMATED GFR 31.0 mL/min (>60); SODIUM,NA 136.0 mEq/L (136-145)
[2025-01-29 04:37] LABS: GLUCOSE RANDOM 104.0 mg/dL (70-99); POTASSIUM,K 3.5 mEq/L (3.5-5.1)
[2025-01-29 04:38] LABS: ALANINE AMINOTRANSFERASE,ALT 70.0 U/L (16-63); ASPARTATE AMNIOTRANSFERASE,AST 79.0 U/L (15-37); CREATININE 2.5 mg/dL (0.7-1.3); PROTEIN TOTAL,TP 4.6 g/dl (6.4-8.2)
[2025-01-29] MEDS: Heparin Sodium 5,000 Units/ML Vial SUBCUT SCH (12:06)
[2025-01-29 17:01] LABS: BLOOD UREA NITROGEN,BUN 29.0 mg/dL (7-18); CARBON DIOXIDE,CO2 20.0 mEq/L (21-32); CHLORIDE,CL 103.0 mEq/L (98-107); EST CRCL DRUG DOSING (CG) 34.58 mL/min; ESTIMATED GFR 31.0 mL/min (>60); SODIUM,NA 135.0 mEq/L (136-145)
[2025-01-29 17:08] LABS: CREATININE 2.5 mg/dL (0.7-1.3); GLUCOSE RANDOM 136.0 mg/dL (70-99); POTASSIUM,K 3.4 mEq/L (3.5-5.1)
[2025-01-31 04:47] LABS: ANA BY ELISA, IGG W/RFX TO IFA None Detected (None Detected)
== END 2025-01-29 19:48 | DRG 432 ==
LOC: JD.ED 18:16 → JD.MS 20:51
PROVIDERS: ADMIT Student in an Organized Health Care Education/Training Program; ATTEND Family Medicine
DX: K70.31 Alcoholic cirrhosis of liver with ascites (principal); K76.7 Hepatorenal syndrome; D68.4 Acquired coagulation factor deficiency; N17.9 Acute kidney failure, unspecified; K70.11 Alcoholic hepatitis with ascites; I10 Essential (primary) hypertension; K21.9 Gastro-esophageal reflux disease without esophagitis; E87.6 Hypokalemia; E80.6 Other disorders of bilirubin metabolism; F10.10 Alcohol abuse, uncomplicated; M10.9 Gout, unspecified; Z79.899 Other long term (current) drug therapy; Z87.81 Personal history of (healed) traumatic fracture; Z90.89 Acquired absence of other organs
CPT/HCPCS: 36415; 76770; 76770-26; 80048; 80053; 81001; 82140; 82272; 82728; 83540; 83735; 84100; 84300; 84466; 85025; 85610; 86038; 93005; 96365; 99285; 99285-25; A9270-GY; J0696; J1644; J2354-JA; J3480; P9047